=== PATIENT | male | born 1960 | race Caucasian/White ===

== ENCOUNTER 2017-12-19 10:00 | Outpatient (RCR) | payer OTHER, SELFPAY ==
--- NOTE | 2017-09-26 11:02 | HP.PTEVAL_ITS ---
Patient's Visit Information TANYA GUTIÉRREZ is a 57 year old M referred to Physical Therapy by MD FARHANA Castillo with a diagnosis of SUPERIOR GLENOID LABRUM LESION OF RIGHT SHOULDER. Date of Evaluation: 09/26/17 Physical Therapist: Pete Hill, PT, - Visit Plan Frequency: 3x /Week Duration: 4 Weeks Plan: ACTIVE PT -ROM/STRENGTHENING RTC,SCAPULAR/DELTOID ,POSTURAL EX,ENDURANCE - Subjective Subjective: This 57 y/o male presents with physical therapy with superior glenoid lesion of right shoulder. Patient DOI Jun 28 2016 injuried pull on dye with wrench felt pop in shoulder ,tried PT prior to surgery. MRI showed RTC tear ,bicep tendon thus under reverse TSR October 26,done by Dr Del Rio Patient had PT [facility].Patient return Jun 22 2017 with light duty,restriction.RTD , then stopped work September 09 ,at this point and recommended active PT.Patient continues to have problems with ADL'S self hygine above 90 degrees and unable to RTW ,also impairs housework tasks. Patient has stiffness and pain.Ocassionally parathesia/tingling. Patient is able to sleep okay. 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 SOCAIL: - Pain Right Shoulder Pain Intensity (Out of 10): 7 Pain Intensity Range: 10 Comment: movement - Objective POSTURE: mild foward posture. PALPATION: mid tender joint. NEURO: denies parathesia /tingling,intact. AROM: flexion 125 degrees ,abduction 105 degrres with substitution ,extension 50 degrres. PROM: supine flexion 150 degrees, abduction 145 deggres ,ER 70 degrees,IR 40 degrees. MMT: RTC 4-/5 ,DELTOID anterior 4-/5,3+/5 lateral deltoid - Goals Goal 1:: Independant with HEP. Goal Time Frame: 4-6 Weeks Goal 2:: Decrease pain right shoulder by 60 % or greater with function activities. Goal Time Frame: 4-6 Weeks Goal 3:: Patient improve AROM shoulder flexion/abd 145 degrees or greater to imrove function and IR behind back L5. Goal Time Frame: 4-6 Weeks Goal 4:: Patient to increase strength of shoulder RTC 4/5 ,DELTOID 4-/5 to improve function above 90 degrees and ADL'S Goal Time Frame: 4-6 Weeks Goal 5:: Patient improve ablity to perform activities above 90 for ADL's for housework task and job demands Goal Time Frame: 4-6 Weeks - Rehabilitation Potential Physical Therapy Diagnosis: This patient underwent s/p reverse TSR after work related injury with decrease ROM ,strength ,pain thus impairs ADL'S ,function and activities abvove 90 degrees and job demands.. Rehabilitation Potential: Good - Anticipated Interventions Patient/Client Instruction: Educate patient on: Condition, Plan of Care For the Purpose of:: To decrease pain, To increase ROM, To improve ability to perform ADL's, To increase tolerance to activity/condition/position, To improve performance and independence with ADL's, To improve ability of physical actions for home/community/work/leisure, To improve health of tissue, To decrease soft tissue restriction, To increase flexibility/ROM, To improve health and function , To prevent re-injury, To improve ability to perform tasks related to life management Therapeutic Exercise to Include: Strength training, Body mechanics, Postural training, Flexibilty training, Passive ROM, Active ROM, Scapular Strength/ Stabilization Comment: SHOULDER For the Purpose of:: To decrease pain, To increase ROM, To improve muscle performance and motor function, To improve ability to perform ADL's, To increase tolerance to activity/condition/position, To improve performance and independence with ADL's, To improve ability of physical actions for home/ community/work/leisure, To improve health of tissue, To decrease soft tissue restriction, To increase flexibility/ROM, To improve ability to perform tasks related to life management, To improve tolerance to ADL's Thank you for the opportunity to evaluate your patient. For Medicare and Medicare HMO plans, please review the plan of care and approve it. It will need to be FAXED BACK to us at [phone] for Medicare purposes. Please let me know if there are questions or concerns regarding this plan of care. Physician Signature: Date:
--- NOTE | 2017-12-19 13:34 | HP.OTFCE_ITS ---
HP OT Functional Capacity Eval - Task Lift Floor (Occasional 1-33% of Day): 35# Floor (Frequent 34-66% of Day): 18# Floor (Constant 67-100% of Day): 7# Floor PDL: Light-Medium Knee (Occasional 1-33% of Day): 35# Knee (Frequent 34-66% of Day): 18# Knee (Constant 67-100% of Day): 7# Knee PDL: Light-Medium Waist (Occasional 1-33% of Day): 35# Waist (Frequent 34-66% of Day): 18# Waist (Constant 67-100% of Day): 7# Waist PDL: Light-Medium Shoulder (Occasional 1-33% of Day): 25# Shoulder (Frequent 34-66% of Day): 12# Shoulder (Constant 67-100% of Day): NA Shoulder PDL: Light Overhead (Occasional 1-33% of Day): 20# Overhead (Frequent 34-66% of Day): 10# Overhead (Constant 67-100% of Day): NA Overhead PDL: Light - Work Activity/Posture Bending: Occasional Ability (1-33% of day) Comments: pt did get dizzy following ten forward bending Squatting: Frequent Ability (34-66% of day) Kneeling: Occasional Ability (1-33% of day) Comments: Low occasional ability Reaching out: Frequent Ability (34-66% of day) Comments: Right Occasional ability due to pain Reaching up: Frequent Ability (34-66% of day) Comments: right NO ability Sitting: Frequent Ability (34-66% of day) Walking: Frequent Ability (34-66% of day) Standing: Frequent Ability (34-66% of day) - Reference Duration Sedentary Sedentary Light Light Light Medium Medium Medium Heavy Very Heavy Heavy Occasional (0-33% of day) Frequent (34-66% of day) Constant (67-100% of day) 10 # Negligible Negligible 15 # 8 # Negligible 20 # 10# Negli. 35 # 18 # 7 # 50 # 25 # 10 # 75 # 100 # >100 # 38 # 50 # >50 # 15 # 20 # >20 # - Patient Information Height: 1.78 m Weight:: 104.326 kg Hand Dominance: right - Medical History Medical History Including Restrictions: Patient states he was in good health until injury Jun 28, 2016 injuried pull on dye with wrench felt pop in shoulder , tried PT prior to surgery. MRI showed RTC tear, bicep tendon thus under reverse TSR October 26, [address] Del Rio Patient had PT [facility]. Patient return Jun 22, 2017 with light duty, lifting restriction of no overhead use of right UE and no lifting over 10#. PT then stopped work September 09, 2017. at this point and recommended active PT, and work conditioning. Pt has now finished work conditioning and feels his shoulder has recovered 30% of his abilities since surgery. Pt states he has concerns to return to work due to right UE limited ROM and strength. - Diagnoses Diagnoses: DM dx in 2014. Right strain of muscle/tendon rotator cuff. Right superior glenoid Labrum lesion shoulder. S/P right total shoulder replacement. Abdominal aortic aneurysm. Sleep apnea dx in 2017 - Symptoms Symptoms: Right shoulder stiffness. right shoulder pain with shoulder abduction /flexion to 90 degrees. Weakness. Limited ROM due to pain - Pain Pain: Pain level at rest 0/10. pain level with shoulder at 90 degress of flexion pain increases to 7/10. - Work History Work History: Pt states he works for [employer]. pt states he has worked for the company for 33 years. 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 PT states parts range in size from small to large parts and weight can range from 30-80#s. pt also had to change dye parts and needs to use large manual tools to remove nuts/ bolts. pt is required climb, stand and ambulate. pt has concerns about returning to his prior job duties due to is right shouler difficulites. - Behavioral Behavioral: pt was coorperative and pleasant. - ADLS ADLS: Pt states he resides with his in a ranch home with basement. Pt has one entry step, and a flight of steps to get to the basement. Pt reports no difficulty with steps, use of 1 handrail. Pt states he is ind. with bathing and dressing tasks. Pt does assist his with house hold chores as, cleaning, laundry, and yard work. pt drives ind. Pts is on disability and recives dialysis nightly. - Physical Examination Physical Examination: pt demo with bilateral dupuytren's contractures- right LF contracted down and demo no digit ext. left LF ROM is functional at this time. ROM: Shoulder ROM: flexion 115, abduction 190 ( pain limiting pt) , IR glute region (limiting). Pt reports 30% improvement since starting PT. He still notes deficits with overhead and behind the back reaching. He does feel he has made improvement with his overall strength and function. [ End ] Strength: Strength: Right ER/IR 4/5, flexion 4-/5, abd 4-/5 in pts limits,. left UE 5/5. Bilateral hip flex 4/5, all other LE MMT 5/5 Right Dry Wall Plasterer Strength Average: 50.00 Right Dry Wall Plasterer Strength Percentile: <4.8% Left Dry Wall Plasterer Strength Average: 71.66 Left Dry Wall Plasterer Strength Percentile: 17% Right Lateral Pinch Average: 17.33 Right Lateral Pinch Percentile: 25% Left Lateral Pinch Average: 12.66 Left Lateral Pinch Percentile: <10% Right Tripod Pinch Average: 12.00 Right Tripod Pinch Percentile: 10% Left Tripod Pinch Average: 10.00 Left Tripod Pinch Percentile: <10% Sensation: Denied sensation changes. Fine Motor: Denied fine motor difficulty. Balance: No loss of balance was noted during task. - Non Material Handling Activities Bending: pt demo the ability to bend forward three times, ten times, and ten times rapidly. following pt stated he did feel a little dizzy but was ok following. pt can perform on a occasional basis. Squatting: Pt demo the ability to squat three times, ten times and ten times rapidly. pt can squat on a frequent basis. Kneeling: Pt demo the ability to kneel three times, pt reported LE pain 5/10 during activity. pt can kneel on a low occasional basis. Reaching out/up: Pt demo left UE ability to reach up/out three time, ten times, and ten times rapidly. pt can reach out/up with left UE on a frequent basis. pt demo with right UE the ability to reach out three times, ten times and ten times rapidly pt reported pain 6/10 during and following activity. pt can use right UE to reach out on a low occasional basis due to pain. pt demo with right the ability to reach up three times only. pt had increase in right shoulder pain 7/10 during this activity. Pt has no ability to reach up with right UE for functional job tasks. Walking: pt demo the ability to ambulate for 15 min with no expressed or apparent discomfort. pt can ambulate on a frequent basis. Standing: Pt demo the ability to stand for 8 min with no expressed or apparent discomfort- with shifting body weight. pt can stand on a frequent basis. Sitting: PT demon the ability to sit for 40 min with no expressed or apparent discomfort- pt has ability to sit on a frequent basis. Climbing Stairs: pt demo the ability to ascend/descend ten steps with a reciprical step pattern and use of one hand rail. - Dynamic Occasional Lifting Capacity Floor Lift: pt demo the ability to lift 35# maximally from this level. Knee Lift: pt demo the ability to lift 35# maximally from this level. Waist Lift: pt demo the ability to lift 35# maximally from this level. Shoulder Lift: pt demo the ability to lift 25# maximally from this level. Overhead Lift: pt demo the ability to lift 20# maximally from this level. Carrying: pt demo the ability to carry 15# with good ability for 30 feet. Comments: pt demo good ability to perfrom tasks- pts limiting factor is pain in right shoulder with tasks. pt reported pain at 7/10 with movment or with lifting overhead.
== END 2017-12-19 19:00 | disposition home or self-care (01) ==
LOC: OT 10:00
PROVIDERS: Family Provider Family Medicine; PCP Family Medicine; Visit Provider Specialist
DX: S43.431D Superior glenoid labrum lesion of right shoulder, subsequent encounter (principal)
CPT/HCPCS: 97110; 97162; 97530; 97750

== ENCOUNTER 2021-05-18 08:30 | Outpatient (RCR) | payer OTHER, SELFPAY ==
--- NOTE | 2021-03-27 13:12 | HP.OTEVAL ---
Patient's Visit Information TANYA GUTIÉRREZ is a 60 year old M, referred to Occupational Therapy by Dr. Jhon Latif DO, with a diagnosis of Palmar fascial fibromatosis. Date of Evaluation: 03/24/21 Occupational Therapist: Vianey Garcia, OTR/L, CHT - Subjective This 60 year old male was seen in OT for dx of plamar fascial fibromatosis ( Dupuytren's) contracture. Pt has had many years of conservative treatment but were not successful. Pt had sx on 2020. ending up undergoing a STP at A2 saad due to tendon integrity. Pt limited with functional use of right UE and would like to be able to put hand in his pocket and keep his fingers from curling. - Pain right hand 1 Pain Intensity Range: 1, 4 - ROM MP: right LF -15/25 RF -20/35 PIP: right LF -25/20 RF -30/ 70 DIP: right LF -10 ROM Comments: flexion will test later date. Short arch motion with wrist fair - Strength Strength Comments: will test later date - Quick DASH-Disab of Arm,Shoulder& Hand Quick DASH Score: 86.6650 - Goals Goal:100% adherence to protocol: Yes Comment: STP ( zone 2 flexor tendon protocol ) Goal:Daily scar massage when approriate: Yes Goal:ROM equal to unaffected hand: Yes Goal:Systems Testing Laboratory Technician/Pinch strength at least 75% of unaffected hand: Yes Goal:No pain with affected hand use: Yes Goal:Full use of affected hand in daily activities including: Yes Goal:Decrease scar hypersensitivity: Yes - Rehabilitation General Assessment: pt is s/p 1 week from Dupuytren's open release.( partial palmar fasciectomy right RF and FDS transfer to [facility] =STP) This was a eight -core suture with A2 saad reconstruction and repair of volar plate right sm due to avulsion volar plate- Pt limited with functional use of right hand for ADLs and IADLs- pt demo need for skilled OTR/L, CHT services 2-3x week for 8 weeks to assist in pts recovery. pt arrives with soft surgical splint on- pt arrives for custom orthosis to provide support and protection while reconstruction and structures are healing- Therapist fabricated custom orthosis placing pt in supported intrinsic plus position but allowing for IF and MF freedom as pts lives alone and needed some use of his right hand. As tendon repair is healing therapy will initiate flexor tendon rehab for eight-core repair/ STP unless otherwise specified by dr. pt agree with POC. Rehabilitation Potential: Good - Anticipated Interventions Early Active Motion, A/AAROM/PROM, Scar Care, Triggerpoint Release, Modalities, Orthoses, Joint Protection/Energy Conservation, Ergonomic Education, Fine Motor Coord/Cas, Caregiver Training - Visit Plan Frequency: 2-3x /Week Duration: 2 Months TEXT: Thank you for the opportunity to evaluate your patient. For Medicare and Medicare HMO plans, please review the plan of care and approve it. It will need to be FAXED BACK to us at [phone] for Medicare purposes. Please let me know if there are questions or concerns regarding this plan of care. Physician Signature: Date:
--- NOTE | 2021-05-18 12:15 | HP.OTEVAL_ITS ---
Patient's Visit Information TANYA GUTIÉRREZ is a 61 year old M, referred to Occupational Therapy by Dr. Jhon Latif DO, with a diagnosis of Contracture L hand: M24.542; Palmar fascial fibromatosis M72.0. Date of Evaluation: 05/18/21 Occupational Therapist: Mahogany Larry - Subjective Pt had previously been coming for R hand contracture s/p dupytrens contracture open release/FDS transfer to [facility]; now pt presents w/ L Dupytren's contracture release ~1-2 week prior to eval on L LF and thumb; Pt reports doctor stated to keep it elevated but not much else; He reports doctor wants him in a splint. Pt has not been able to work since his initial surgery on his R hand. - ADLs Dressing: Overhead shirt, Button shirt Fasteners: Tie shoes, Buttons Eating: Cut food Toileting: Manage clothing Kitchen: Open jars, Open bottle caps, Take dish out of oven Miscellaneous: Hold change, Carry shopping bag, Use hand tools, Use power tools Comments: Pt states having some difficulty w/ ADLS but he is managing; he would like to return to work - Pain right hand 1 Pain Intensity Range: 4 L hand 5 Pain Intensity Range: 0 - Objective Pt presents s/p contracture release of L LF and thumb; Pt is R hand dominant - ROM MP: L flexion 0/32 IP: L flexion 0/60 Opposition: 6 MP: LF -40/77 PIP: LF -15/71 DIP: LF 0/30 ROM Comments: limited due to scar healing/incision - Strength Shuttle Van Driver: R L 15 Lateral Pinch: R L 9 Tripod Pinch: R L 6 Strength Comments: will test later date - Edema Other: swelling noted thenar eminence; edema on volar MCP L LF - Sensation Sensation Comments: states N/T on volar and dorsal areas of D1 and D5 of L hand - Quick DASH-Disab of Arm,Shoulder& Hand Quick DASH Score: 52.2725 - Goals Goal:: 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 Goal:: Pt will report complete modified independence w/ ADLs. Goal:: Pt will improve Quick dash score <25 in order to complete functional tasks w/ more ease. Goal:: Pt will demo good understanding of splint care and use by second session. Goal:100% adherence to protocol: Yes Comment: STP ( zone 2 flexor tendon protocol ) Goal:Daily scar massage when approriate: Yes Goal:ROM equal to unaffected hand: Yes Goal:Shuttle Van Driver/Pinch strength at least 75% of unaffected hand: Yes Goal:No pain with affected hand use: Yes Goal:Full use of affected hand in daily activities including: Yes Goal:Decrease scar hypersensitivity: Yes - Rehabilitation General Assessment: pt is s/p 1 week from Dupuytren's open release.( partial palmar fasciectomy right RF and FDS transfer to FDP =STP) This was a eight - core suture with A2 saad reconstruction and repair of volar plate right sm due to avulsion volar plate- Pt limited with functional use of right hand for ADLs and IADLs- pt demo need for skilled OTR/L, CHT services 2-3x week for 8 weeks to assist in pts recovery. pt arrives with soft surgical splint on- pt arrives for custom orthosis to provide support and protection while reconstruction and structures are healing- Therapist fabricated custom orthosis placing pt in supported intrinsic plus position but allowing for IF and MF freedom as pts lives alone and needed some use of his right hand. As tendon repair is healing therapy will initiate flexor tendon rehab for eight-core repair/ STP unless otherwise specified by . pt agree with POC. Rehabilitation Potential: Good - Anticipated Interventions A/AAROM/PROM, Strengthening, Edema Control, Scar Care, Massage, Triggerpoint Release, Desensitization, Sensory Retraining, Modalities, Orthoses, Joint Protection/Energy Conservation, Fine Motor Coord/Cas, Home Program - Visit Plan Frequency: 2x /Week Duration: 6 Weeks General Plan: Pt is demo'ing deficits w/ ROM, pain, strength, and edema impacting his ability to complete daily tasks and return to work. He would benefit from cont. therapy services 2-3x/week for 4-6 in order to address skill deficits and maximize potential. TEXT: Thank you for the opportunity to evaluate your patient. For Medicare and Medicare O plans, please review the plan of care and approve it. It will need to be FAXED BACK to us at [phone] for Medicare purposes. Please let me know if there are questions or concerns regarding this plan of care. Physician Signature: Date:
--- NOTE | 2021-07-09 13:15 | HP.OT.NRP ---
TANYA GUTIÉRREZ was seen in my office for initial evaluation on 05/18/21. The following Plan of Care was established for this patient: Initial Frequency: 2x /Week Initial Duration: 6 Weeks Plan: cont for 30 min sessions for 2 more week s Anticipated Interventions: A/AAROM/PROM, Strengthening, Edema Control, Scar Care, Massage, Triggerpoint Release, Desensitization, Sensory Retraining, Modalities, Orthoses, Joint Protection/Energy Conservation, Fine Motor Coord/Cas, Home Program This patient was last seen in our office 05/18/21. Pertinent comments regarding their Occupational therapy will appear below: pt was seen for 11 visits- due to limited gains pt cancelled his last scheduled apt and is d/c due to time lapse in services. At this point I will be discontinuing this patient from occupational therapy. I would be happy to see this patient again in the future if found appropriate by the physician. Thank you! Vianey Garcia, OTR/L, CHT
== END 2021-05-18 19:00 | disposition home or self-care (01) ==
LOC: OT 08:30
PROVIDERS: PCP Family Medicine; Visit Provider Student in an Organized Health Care Education/Training Program
DX: M72.0 Palmar fascial fibromatosis [Dupuytren] (principal)
CPT/HCPCS: 97035; 97110; 97140; 97165; 97166; 97530; 97760

== ENCOUNTER 2021-06-23 15:36 | Outpatient (CLI) | payer OTHER, SELFPAY | END 2021-06-23 23:59 | disposition short-term general hospital (02) | LOC: LABSPEC 15:37 | PROVIDERS: PCP Family Medicine; Referring Provider Physician Assistant Surgical; Visit Provider Physician Assistant Surgical | DX: U07.1 COVID-19 (principal) | CPT/HCPCS: 87635; U0003; U0005 ==